=== PATIENT | female | born 1985 | race Caucasian/White ===

== ENCOUNTER 2020-01-24 11:03 | Emergency (ER) | payer OTHER, SELFPAY ==
--- NOTE | ~2020-01-24 | CT_ITS ---
EXAMINATION: CT abdomen pelvis w con DATE: 01/24/2020 12:13 INDICATION: Right lower quadrant pain TECHNIQUE: Computed tomography (CT) of the abdomen and pelvis was performed with 100 cc Omnipaque 350 intravenous contrast. The dose-length product was 554.02 mGy-cm. Automated exposure control and iter ative reconstruction technique were employed. COMPARISON: None. FINDINGS: There is dependent atelectasis of the lung bases. Heart size normal. No significant pleural or pericardial effusion. Status post cholecystectomy with expected prominence of the bile ducts. The liver, spleen, pancreas, adrenal glands and kidneys are unremarkable. Nonobstructive bowel gas pattern. There is a 3.5 cm righ t adnexal cyst, likely ovarian. No free fluid or free air. Small fat-containing umbilical hernia. The appendix is not positively visualized. There is no pericecal inflammatory change to suggest appendi citis. There are mild wedge-shaped deformities of T11 and T12, likely chronic. No acute osseous abnormality. IMPRESSION: 1. Right adnexal cyst measuring 3.5 cm maximum dimension, likely ovarian. Reviewed, dictated and finalized at location A.
[2020-01-24 11:10] VITALS: BP 133/74; PULSE 101; RESP 18; TEMP 37.1; O2SAT 97
[2020-01-24 11:43] LABS: Basophils Absolute Auto 0.1 K/mm3 (0.0-0.1); Basophils Percent Auto 0.4 % (0.2-1.2); Eosinophils Absolute Auto 0.2 K/mm3 (0-0.3); Eosinophils Percent Auto 1.3 % (0-4.4); Hematocrit 36.5 % (37.0-47.0); Hemoglobin 12.1 g/dL (12.0-15.0); Immature Granulocyte Absolute 0.04 K/mm3 (0.00-0.031); Immature Granulocyte Percent A 0.3 % (0-0.5); Lymphocytes Percent Auto 20.8 % (18.3-44.2); Mean Corpuscular HGB Conc 33.2 g/dl (32-36); Mean Corpuscular Hemoglobin 31.2 pg (26-34); Mean Corpuscular Volume 94.1 fl (80-100); Mean Platelet Volume 9.7 fl (7.4-10.4); Monocytes Absolute Auto 0.9 K/mm3 (0.1-0.6); Monocytes Percent Auto 6.9 % (2.6-8.5); Neutrophils Absolute Auto 9.1 K/mm3 (1.3-6.7); Neutrophils Percent Auto 70.3 % (45.5-73.1); Platelet Count Result 274 k/mm3 (150-375); Red Blood Count 3.88 M/mm3 (4.2-5.4); Red Cell Distribution Width 12.8 % (11.5-14.5)
[2020-01-24 11:56] LABS: Alanine Aminotransferase 39 U/L (4-35); Albumin Level 4.1 g/dL (3.5-5.1); Alkaline Phosphatase 86 U/L (38-126); Aspartate Amino Transferase 33 U/L (14-36); Bilirubin,Total 0.5 mg/dL (0.2-1.3); Blood Urea Nitrogen 7 mg/dL (7-17); Calcium 8.9 mg/dL (8.4-10.2); Carbon Dioxide 27 mmol/L (22-30); Chloride 103 mmol/L (98-107); Estimated CRCL calculation 107 ml/min; Estimated Glomerular Filt Rate > 60; Glucose 90 mg/dL (65-105); Lipase 36 U/L (23-300); Potassium 3.8 mmol/L (3.4-5.0); Sodium 134 mmol/L (137-145)
--- NOTE | 2020-01-24 11:56 | ED.ABDPAIN ---
HPI - Abdominal Pain General Chief Complaint: Abdominal Pain Stated Complaint: Sever abd pain Time Seen by Provider: 01/24/20 11:10 Source: patient Limitations: no limitations History of Present Illness HPI narrative: Patient is a 34-year-old female who presents to emergency department for evaluation of right lower quadrant abdominal pain that began today patient notes she has also had some vaginal discharge. Patient notes slight nausea but denies any fever chills vomiting diarrhea urinary symptoms. Patient notes possible risk for STD. Patient on arrival is in the room in no distress. Patient admits to having used heroin and methamphetamine prior evening. Related Data Home Medications Medication Instructions Recorded Confirmed divalproex [Depakote ER] 250 mg PO DAILY 01/24/20 Allergies Allergy/AdvReac Type Severity Reaction Status Date / Time meperidine [From Demerol] AdvReac Hives Verified 01/24/20 11:36 Review of Systems Review of Systems: All systems reviewed & are unremarkable except as noted in HPI and below PMFSH Past Medical History Medical History (Updated 01/24/20 @ 13:39 by Terry May PA-C) Obesity Seizure disorder Surgical History Surgical History H/O section Social History Social History (Updated 01/24/20 @ 11:59 by Terry May PA-C) Smoking status: Current every day smoker Alcohol intake: current Substance use type: heroin and amphetamines Living arrangements: with family Gender identity (if verbalized by the patient): Female Exam Narrative: Exam Narrative: GENERAL: Well-appearing, obese, and in no acute distress. HEAD: Normocephalic, atraumatic. EYES: PERRLA and EOMI. ENT: Nares clear, no rhinorrhea or epistaxis. Mucous membranes moist. CHEST: Clear to auscultation. No respiratory distress. No wheezes rales or rhonchi HEART: Regular rate and rhythm. No murmur heard. Normal peripheral pulses. ABDOMEN: Soft, right lower quadrant tenderness to palpation, nondistended, normal active bowel sounds. EXTREMITIES: Normal range of motion. No edema. SKIN: Warm, dry, no rash. NEURO: No focal deficits. Alert and oriented x3. Cranial nerves II through XII grossly intact PSYCH: Normal mood and affect. Course Course Emergency Course: Patient is a 34-year-old female who presented with right lower quadrant abdominal pain found to have ovarian cyst in the room afebrile nontoxic-appearing no other high risk changes in the blood work or imaging agreeing to follow-up with gynecology and primary care noted improvement with medications Vital Signs Vital signs: Vital Signs Temperature 98.8 F 01/24/20 11:10 Pulse Rate 101 H 01/24/20 11:10 Respiratory Rate 18 01/24/20 11:10 Blood Pressure 133/74 01/24/20 11:10 Pulse Oximetry 97 01/24/20 11:10 Temperature 98.8 F 01/24/20 11:10 Pulse Rate 101 H 01/24/20 11:10 Respiratory Rate 18 01/24/20 11:10 Blood Pressure 133/74 01/24/20 11:10 Pulse Oximetry 97 01/24/20 11:10 MDM - Abdominal Pain MDM Narrative Medical decision making narrative: Patient in the room resting comfortably noting improvement with medications aware of case findings treatment plan and diagnosis agreeing to follow-up as directed provided with reasons to return afebrile nontoxic-appearing without emesis was treated for STDs Lab Data Result diagrams: 01/24/20 11:26 01/24/20 11:26 Labs: Lab Results 01/24/20 01/24/20 01/24/20 Range/Units 11:26 11:26 11:26 WBC 13.0 H (4.5-10.0) K/mm3 RBC 3.88 L (4.2-5.4) M/mm3 Hgb 12.1 (12.0-15.0) g/dL Hct 36.5 L (37.0-47.0) % MCV 94.1 (80-100) fl MCH 31.2 (26-34) pg MCHC 33.2 (32-36) g/dl RDW 12.8 (11.5-14.5) % Plt Count 274 (150-375) k/mm3 MPV 9.7 (7.4-10.4) fl Immature Gran % (Auto) 0.3 (0-0.5) % Neut % (Auto) 70.3 (45.5-73.1) % Lymp
[2020-01-24] MEDS: SODIUM CHLORIDE 0.9% IV 1,000 ML 999 ML IV CONT (12:19)
[2020-01-24 12:51] LABS: Add Urine Microscopic? YES; Appearance Urine Cloudy (Clear); Bacteria Urine Trace /hpf; Bilirubin Urine Negative (Negative); Blood Urine Negative (Negative); Color Urine Yellow (Yellow); Glucose Urine UA Negative (Negative); Ketones Urine Negative (Negative); Leukocyte Esterase Ur 3+ LEU/UL (Negative); Mucus Urine Heavy /lpf; Nitrate Urine Negative (Negative); Protein Urine 1+ mg/dL (Negative); RBC Urine 0-2 /hpf (0-2); Specific Grav Ur 1.027 (1.001-1.035); Squamous Epithelial Cell Urine Many /hpf (Few)
[2020-01-24] MEDS: metroNIDAZOLE 250 MG TABLET 2000 MG PO (13:23)
[2020-01-24] MEDS: KETOROLAC 30 MG/ML VIAL (*BKC) IV PUSH (13:23)
[2020-01-24] MEDS: AZITHROMYCIN 250 MG TABLET 1000 MG PO (13:24)
[2020-01-24 13:29] VITALS: BP 111/71; PULSE 98; RESP 20; O2SAT 100
[2020-01-24 13:58] VITALS: BP 124/98; PULSE 93; RESP 18; O2SAT 100
== END 2020-01-24 14:00 | disposition home or self-care (01) ==
PROVIDERS: Emergency Medicine Emergency Medical Services; Emergency Provider Emergency Medicine; PCP Internal Medicine
DX: N83.201 Unspecified ovarian cyst, right side (principal); N34.2 Other urethritis; R10.31 Right lower quadrant pain; F17.210 Nicotine dependence, cigarettes, uncomplicated; G40.909 Epilepsy, unspecified, not intractable, without status epilepticus; E66.9 Obesity, unspecified; Z68.35 Body mass index [BMI] 35.0-35.9, adult
CPT/HCPCS: 36415; 74177; 80053; 81001; 81025; 83690; 85025; 87086; 87088; 87491; 87591; 96365; 96367; 96375; 99284; A9270; J0131; J0696; J1885; J7030; Q9967

== ENCOUNTER 2020-07-27 19:38 | Emergency (ER) | payer OTHER, SELFPAY ==
--- NOTE | ~2020-07-27 | XR_ITS ---
XR abdomen/kub 1V 07/27/2020 20:26 INDICATION: Foreign body ingestion.. Methamphetamines bag and 4 fentanyl buttons. TECHNIQUE: KUB COMPARISON: None FINDINGS: Bowel gas pattern is normal. There is a round foreign body in the pelvis. There are cholecy stectomy clips. There is no evidence of free air, mass, organomegaly, ascites or obstruction. No abn ormal calculi are seen. The bones appear intact. IMPRESSION: 1: Round radiolucent foreign body in the pelvis, possibly in the distal colon or rectum. Reviewed, dictated and finalized at location A. IMPRESSION: 1: Round radiolucent foreign body in the pelvis, possibly in the distal colon o r rectum.
--- NOTE | ~2020-07-27 | XR_ITS ---
EXAMINATION: XR chest 2V 07/27/2020 20:27 INDICATION: Overdose PROCEDURE: 2 view chest COMPARISON: 03/15/2007 FINDINGS: The lungs are clear. The cardiomediastinal silhouette is within normal limits. There are no pleural effusions. There is no pneumothorax suspected. IMPRESSION: 1: NO ACUTE CARDIOPULMONARY DISEASE. Reviewed, dictated and finalized at location A.
[2020-07-27 19:48] VITALS: BP 136/84; PULSE 128; RESP 22; TEMP 36.2; O2SAT 97
--- NOTE | 2020-07-27 20:09 | ECG_ITS ---
Measurements Intervals Stout Rate: 100 P: 30 MO: 143 QRS: 76 QRSD: 106 T: 36 QT: 342 QTc: 442 Interpretive Statements SINUS TACHYCARDIA BORDERLINE R WAVE PROGRESSION, ANTERIOR LEADS BASELINE ARTIFACT- I, II, III, AVR, AVL, AVF, V3, V6 BORDERLINE ECG Electronically Signed On 07-28-2020 8:10:37 CDT by Efren Pak D.O.
[2020-07-27 20:38] VITALS: PULSE 118
[2020-07-27] MEDS: PROMETHAZINE HCL 25 MG/ML AMPUL 12.5 MG IV PUSH (20:39)
[2020-07-27] MEDS: SODIUM CHLORIDE 0.9% IV 1,000 ML 999 ML IV CONT (20:39)
[2020-07-27 20:49] LABS: Basophils Absolute Auto 0.1 K/mm3 (0.0-0.1); Basophils Percent Auto 0.6 % (0.2-1.2); Eosinophils Absolute Auto 0.1 K/mm3 (0-0.3); Eosinophils Percent Auto 0.9 % (0-4.4); Hemoglobin 13.3 g/dL (12.0-15.0); Immature Granulocyte Absolute 0.03 K/mm3 (0.00-0.031); Immature Granulocyte Percent A 0.3 % (0-0.5); Lymphocytes Absolute Auto 2.35 K/mm3 (0.9-3.2); Lymphocytes Percent Auto 26.1 % (18.3-44.2); Mean Corpuscular HGB Conc 34.1 g/dl (32-36); Mean Corpuscular Hemoglobin 31.4 pg (26-34); Mean Corpuscular Volume 92.2 fl (80-100); Mean Platelet Volume 9.8 fl (7.4-10.4); Monocytes Absolute Auto 0.8 K/mm3 (0.1-0.6); Monocytes Percent Auto 8.3 % (2.6-8.5); Neutrophils Absolute Auto 5.7 K/mm3 (1.3-6.7); Neutrophils Percent Auto 63.8 % (45.5-73.1); Platelet Count Result 289 k/mm3 (150-375); Red Blood Count 4.23 M/mm3 (4.2-5.4); Red Cell Distribution Width 12.5 % (11.5-14.5)
[2020-07-27] MEDS: PEG (High)/E-LYTE SOLN 4,000 ML BTL 4000 ML PO (20:56)
[2020-07-27 21:00] VITALS: BP 142/92; PULSE 98; RESP 18; O2SAT 98
[2020-07-27 21:03] LABS: Alanine Aminotransferase 101 U/L (4-35); Albumin Level 4.5 g/dL (3.5-5.1); Alkaline Phosphatase 87 U/L (38-126); Anion Gap 13 mmol/L (8-16); Aspartate Amino Transferase 60 U/L (14-36); Bilirubin,Total 0.4 mg/dL (0.2-1.3); Blood Urea Nitrogen 9 mg/dL (7-17); Calcium 8.9 mg/dL (8.4-10.2); Carbon Dioxide 25 mmol/L (22-30); Chloride 103 mmol/L (98-107); Estimated CRCL calculation 112 ml/min; Estimated Glomerular Filt Rate > 60; Glucose 95 mg/dL (65-105); Lipase 30 U/L (23-300); Potassium 3.5 mmol/L (3.4-5.0); Sodium 141 mmol/L (137-145)
[2020-07-27 21:05] LABS: Acetaminophen < 10 ug/mL (10-30); Ethanol < 10 mg/dL (<10); Salicylate < 1.0 mg/dL (2-20)
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
[2020-07-27 21:32] LABS: Barbiturate Screen Urine Negative (Negative); Benzodiazepines Screen Urine Negative (Negative)
[2020-07-27] MEDS: NALOXONE HCL 0.4 MG/ML VIAL (21:34)
--- NOTE | 2020-07-27 21:34 | PC.NURSE ---
vrbo to give pt 0.4 narcan x1
[2020-07-27 21:40] LABS: Cannabinoid Screen Urine Positive (Negative); Cocaine Screen Urine Negative (Negative); Methadone Screen Urine Negative (Negative); Opiate Screen Urine Positive (Negative); Phencyclidine Screen Urine Negative (Negative)
[2020-07-27 21:46] VITALS: BP 149/96; PULSE 88; RESP 22; O2SAT 97
[2020-07-27 21:56] LABS: Amphetamine Screen Urine Positive (Negative)
[2020-07-27 22:42] VITALS: PULSE 110; RESP 19; O2SAT 96
== END 2020-07-28 00:52 ==
PROVIDERS: Emergency Provider Emergency Medicine; PCP Internal Medicine
DX: T40.601A Poisoning by unspecified narcotics, accidental (unintentional), initial encounter (principal); G40.909 Epilepsy, unspecified, not intractable, without status epilepticus; E66.9 Obesity, unspecified; Z68.31 Body mass index [BMI] 31.0-31.9, adult; F17.200 Nicotine dependence, unspecified, uncomplicated; R00.0 Tachycardia, unspecified; R94.31 Abnormal electrocardiogram [ECG] [EKG]
CPT/HCPCS: 36415; 71046; 74018; 80053; 80307; 83690; 85025; 93005; 96374; 96375; 99284; A9270; J2310; J2550; J7030

== ENCOUNTER 2021-04-04 02:36 | Inpatient (IN) | payer OTHER, SELFPAY ==
[2021-04-04] VITALS (83 sets, daily range): BP systolic 124–170; BP diastolic 71–141; PULSE 71–229; RESP 14–18; TEMP 36.1; O2SAT 96–100; BMI 40.0
--- NOTE | 2021-04-04 02:36 | LDADM ---
This patient, Lanny Hardy, was admitted to Labor/Delivery/Recovery 120 on 04/04/21 at 02:36. Plans for labor, pain management and were discussed with patient. Patient/family oriented to hospital policies and general routines including ID bracelet, bed and alarms, visiting hours, pain management, procedures, bathroom and other care routines, personal items, smoking policy, room service/diet and guest tray routines, security routines, and visiting hours. Patient/Family are encouraged to report perceived risks to care and to ask questions if they do not understand what they are told or what they should do. See OBIX for further documentation.
--- NOTE | 2021-04-04 03:09 | P.PNAN_ITS ---
Anes - Eval Pre Procedure Procedure: repeat Date/Time: 04/04/21 03:09 Surgeon: georgi Pre Op Diagnosis: Contractions Patient Data Age: 35 Gender: F Height: Weight: Allergies Allergy/AdvReac Type Severity Reaction Status Date / Time meperidine [From Demerol] AdvReac Hives Verified 07/27/20 19:52 Patient hx anesthesia problems: none Family hx anesthesia problems: none [facility] Past Medical History Medical History (Updated 07/29/20 @ 00:00 by Xochitl Luis) Obesity Seizure disorder Surgical History Surgical History H/O section Social History Social History (Updated 01/24/20 @ 11:59 by Terry May PA-C) Smoking status: Current every day smoker Alcohol intake: current Substance use type: heroin and amphetamines Gender identity (if verbalized by the patient): Female Exam Day of Procedure 04/04/21 03:09
--- NOTE | 2021-04-04 03:26 | WPDHPUPDATE1 ---
History and Physical Update Update Date/Time: 04/04/21 03:26 History and Physical has been reviewed, including an updated exam of the patient. There are NO changes in the patient's condition. Risks, benefits, and alternatives have been discussed and questions answered. Patient agrees to proceed with procedure.
--- NOTE | 2021-04-04 03:27 | PM.IMHP ---
H&P: HPI History of Present Illness Date/Time: 04/04/21 03:27 This patient is a 35-year-old multiparous female at 38 weeks gestation with a history of uterine rupture presents in labor. She is having painful uterine contractions. She denies any loss of fluid or vaginal bleeding. She reports good movement. She denies any nausea, vomiting, fever, chills. She denies any chest pain or shortness of breath. She denies any headache, blurry vision, epigastric pain. Chief Complaint: Labor Review of Systems Constitutional: Constitutional: Reports no additional constitutional complaints, Denies fatigue, Denies headache(s), Denies lethargy and Denies weakness Eyes: Eyes: Reports no additional eye complaints, Denies blurry vision and Denies photophobia ENT: Reports as per HPI, Denies headache(s) and Denies neck pain Cardiovascular: Cardiovascular: Denies chest pain, Denies diaphoresis, Denies leg edema, Denies palpitations and Denies dyspnea Respiratory: Respiratory: Denies hemoptysis, Denies dyspnea and Denies wheezing Gastrointestinal: Gastrointestinal: Denies abdominal pain, Denies melena, Denies bloating, Denies hematochezia, Denies nausea and Denies vomiting Genitourinary: Genitourinary: Reports no additional female genitourinary complaints Musculoskeletal: Musculoskeletal: Denies joint swelling, Denies neck pain, Denies numbness and Denies stiffness Neurologic: Denies Abnormal speech present, Denies confusion, Denies headache(s), Denies numbness and Denies weakness Psychiatric: Psychiatric: Denies anxiety, Denies confusion, Denies depression, Denies homicidal ideation and Denies suicidal ideation Endocrine: Endocrine: Denies fatigue and Denies palpitations Allergic/Immunologic: Allergic/Immunologic: Denies wheezing PMFSH Past Medical History Medical History (Updated 04/04/21 @ 03:30 by Stacy Prescott MD) Obesity Seizure disorder Surgical History Surgical History (Updated 04/04/21 @ 03:30 by Stacy Prescott MD) H/O section Social History Social History (Updated 01/24/20 @ 11:59 by Terry May PA-C) Smoking status: Current every day smoker Alcohol intake: current Substance use type: heroin and amphetamines Gender identity (if verbalized by the patient): Female Meds Home Medications and Allergies Allergies Allergy/AdvReac Type Severity Reaction Status Date / Time meperidine [From Demerol] AdvReac Hives Verified 07/27/20 19:52 Exam Const: General: healthy appearing, comfortable and no acute distress; No confusion Orientation/consciousness: No confusion Eyes: Direct Ophthalmoscopy: No photophobia Resp: Auscultation: clear to auscultation bilaterally, no rales, no rhonchi and no wheezes Cardio: Rate: regular rate Heart sounds: no click, no murmurs and no rubs GI: Inspection: non-distended GI Palp: No abdominal tenderness Auscultation: normal bowel sounds Neuro: General: No confusion Speech: No Abnormal speech present Extrem: General: normal to inspection, no pedal edema and no calf tenderness Assessment and Plan Assessment and plan (1) Term : Code(s): Z34.90 - Encounter for supervision of normal , unspecified, unspecified trimester Status: Acute (2) Previous section: Code(s): Z98.891 - History of uterine scar from previous surgery Status: Acute (3) Uterine rupture: Code(s): S37.69XA - Other injury of uterus, initial encounter Status: Acute (4) Seizure disorder: Code(s): G40.909 - Epilepsy, unspecified, not intractable, without status epilepticus Status: Acute Assessment and Plan: this patient is a 35-year-old multiparous female at term presents with painful uterine contractions. She has a history of uterine rupture. We will proceed with delivery immediately. She has reassuring heart tones.
[2021-04-04 03:28] LABS: Basophils Percent Auto 0.3 % (0.2-1.2); Eosinophils Absolute Auto 0.2 K/mm3 (0-0.3); Eosinophils Percent Auto 1.5 % (0-4.4); Hematocrit 40.3 % (37.0-47.0); Hemoglobin 13.5 g/dL (12.0-15.0); Immature Granulocyte Absolute 0.08 K/mm3 (0.00-0.031); Immature Granulocyte Percent A 0.5 % (0-0.5); Lymphocytes Absolute Auto 2.35 K/mm3 (0.9-3.2); Lymphocytes Percent Auto 15.2 % (18.3-44.2); Mean Corpuscular HGB Conc 33.5 g/dl (32-36); Mean Corpuscular Hemoglobin 33.3 pg (26-34); Mean Corpuscular Volume 99.3 fl (80-100); Mean Platelet Volume 12.1 fl (7.4-10.4); Monocytes Percent Auto 6.1 % (2.6-8.5); Neutrophils Absolute Auto 11.9 K/mm3 (1.3-6.7); Neutrophils Percent Auto 76.4 % (45.5-73.1); Platelet Count Result 172 k/mm3 (150-375); Red Blood Count 4.06 M/mm3 (4.2-5.4); Red Cell Distribution Width 14.2 % (11.5-14.5); White Blood Count 15.5 K/mm3 (4.5-10.0)
[2021-04-04 04:11] LABS: Alanine Aminotransferase 29 U/L (4-35); Albumin Level 3.2 g/dL (3.5-5.1); Alkaline Phosphatase 244 U/L (38-126); Anion Gap 5 mmol/L (8-16); Aspartate Amino Transferase 42 U/L (14-36); Bilirubin,Total 0.2 mg/dL (0.2-1.3); Blood Urea Nitrogen 10 mg/dL (7-17); Carbon Dioxide 21 mmol/L (22-30); Chloride 108 mmol/L (98-107); Estimated Glomerular Filt Rate > 60; Glucose 123 mg/dL (65-105); Potassium 3.5 mmol/L (3.4-5.0); Sodium 134 mmol/L (137-145)
[2021-04-04 04:12] LABS: Barbiturate Screen Urine Negative (Negative); Benzodiazepines Screen Urine Negative (Negative)
[2021-04-04 04:13] LABS: Cannabinoid Screen Urine Positive (Negative); Cocaine Screen Urine Negative (Negative); Methadone Screen Urine Negative (Negative); Opiate Screen Urine Negative (Negative); Phencyclidine Screen Urine Negative (Negative)
--- NOTE | 2021-04-04 04:29 | W.PM.PROC2 ---
Procedure Note - Detailed Date of Procedure 04/04/21 Pre-op Diagnosis Contractions, labor, previous a uterine rupture, previous delivery Post-op Diagnosis same Procedure Performed Low-transverse section Surgeon Stacy Prescott MD Anesthesia spinal Indications labor, previous uterine rupture Findings Normal gestational maternal anatomy, average size , normal Apgars. thick meconium Description of Procedure The patient was taken the operating room. She was prepped and draped in dorsal supine position with a leftward tilt. This was done after spinal anesthetic was applied. A low-transverse skin incision was made and carried down till of the fascia with the knife. The fascial incision was made with the knife. The fascial incision was extended laterally with Espinosa scissors. The fascia was tented upward superiorly and inferiorly the rectus muscles were dissected off bluntly. The rectus muscles were the midline. The preperitoneal fat and peritoneum were dissected open bluntly at the superior aspect of the rectus muscles. The peritoneal incision was extended superior and inferior with good position of bladder. The uterine incision was made with a scalpel down to the level of the amniotic cavity. The amniotic cavity was entered bluntly. The infant was delivered. The cord was clamped and cut and the infant was handed off to waiting pediatric staff. Cord bloods were obtained. The placenta was removed manually. The uterus was exteriorized. The uterus was cleared of all clots, debris and membranes. The uterus was closed in 0 Vicryl running lock fashion. An imbricating over a was placed along the incision line as well. The uterus was returned to the abdomen. The gutters were cleared of all clots and debris. The fascia was closed with 0 Vicryl running fashion. The subcutaneous tissue was irrigated pinpoint bleeders were cauterized. The skin was closed with subcuticular absorbable esthela. The skin incision line was covered with glue. The patient tolerated the procedure well. She has taken recovery room in stable condition. Sponge lap and needle counts were correct x2. Pathology yes Complications No immediate complications Condition stable Disposition PACU
--- NOTE | 2021-04-04 04:32 | WPDANESEFPP ---
Anes - Eval Final PreProcedure Day of Procedure 04/04/21 04:32 Patient weight: obese Heart: regular rate and rhythm Lungs: decreased breath sounds Neurological: alert and oriented ASA classification: III Emergent: yes Anesthetic plan: proceed Anesthesia type and monitoring: regional spinal and standard monitoring Other findings: exam per GS Informed Consent: The patient's anesthetic plan and its attendant risks and benefits were discussed with the patient/family/POA. Questions were solicited and answers provided to the satisfaction of the patient/family/POA.
--- NOTE | 2021-04-04 04:44 | PC.NURSE ---
Dr. Prescott updated on pt blood pressure in OR. Pt continuing to have elevated blood pressures. Order received for 200mg BID Labetalol PO. No other new orders at this time.
[2021-04-04 04:48] LABS: Rubella IgG Antibody 57.2 IU/ML
[2021-04-04 04:49] LABS: Hepatitis B Surface Antigen Negative (Negative)
[2021-04-04 04:59] LABS: HIV 1/2 Ab P24 Ag Result Negative (Negative)
[2021-04-04] MEDS: OXYTOCIN 30 UNITS/NS 500 ML 30 UNITS/500 ML BAG 125 UNITS IV CONT (05:05)
[2021-04-04] MEDS: LABETALOL HCL 100 MG TABLET 200 MG PO (05:53)
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
[2021-04-04] MEDS: DEXTROSE 5%/0.45% SOD CHL 1,000 ML 125 ML IV CONT (10:04)
[2021-04-04] MEDS: HYDROcodone/acetaminophen (*CRX) 10-325 MG TABLET 1 TAB PO (10:04)
[2021-04-04] MEDS: DOCUSATE SODIUM 100 MG CAPSULE PO (10:44)
[2021-04-04] MEDS: MULTIVIT/MIN/PREN/FOL AC/IRON TABLET 1 TAB PO (10:45)
--- NOTE | 2021-04-04 10:46 | PC.NURSE ---
1010--Phopne call to Dr. Prescott re: pt. being very anxious and stating that she wants to leave and go with the baby . updated re: v.s., orders received for valium 5mg IV.
--- NOTE | 2021-04-04 10:47 | PC.NURSE ---
1045--Pt. refusing valium at this time.
--- NOTE | 2021-04-04 11:04 | PC.NURSE ---
1100--Pt. states she is going to sign out AMA and leave. Pt. educated re: BP, postop risks and strongly encouraged to stay and receive medical care. Pt. insists she has to go . Phone call to Dr. Prescott updating him about pt. States he will be here soon.
--- NOTE | 2021-04-04 11:08 | PC.NURSE ---
1108--Dr. Prescott at to see pt.
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
--- NOTE | 2021-04-04 11:50 | PC.NURSE ---
1145--Pt. left unit AMA accompanied by a family member.
--- NOTE | 2021-04-04 11:55 | PC.NURSE ---
1123--IV and FC DC'd. Attempt to educate pt. re: post-op care, pt. states I've done this 3 times before, I know what I'm supposed to do. Pt. recieves personal phone call at this time.
[2021-04-04 12:11] LABS: Rapid Plasma Reagin Non-Reactive (NonReactive)
[2021-04-07 21:54] LABS: Hepatitis C RNA, Quant PCR 2320000 IU/mL
--- NOTE | 2021-04-25 21:05 | PM.OBDSVD ---
DS: Admitting Diagnosis Admitting Diagnosis labor, uterine rupture DS: Discharge Diagnosis Discharge Diagnosis (1) Uterine rupture: Code(s): S37.69XA - Other injury of uterus, initial encounter Status: Acute (2) Previous section: Code(s): Z98.891 - History of uterine scar from previous surgery Status: Acute (3) Term : Code(s): Z34.90 - Encounter for supervision of normal , unspecified, unspecified trimester Status: Acute (4) Seizure disorder: Code(s): G40.909 - Epilepsy, unspecified, not intractable, without status epilepticus Status: Acute OB - DS: Summary OB Procedures : NST and Ultrasound OB Procedures Intrapartum: OB Procedures: : None Peripartum Data Procedures: Procedures Operation Date: 04/04/21 03:25 Actual Procedure Side Surgeon p Section Stacy Prescott MD Time Spent with Patient Time attestation: Total time spent providing and/or coordinating discharge services: Discharge Plan Discharge Consulting providers: Veronn Gustafson Patient Disposition: Left Against Medical Advice Discharge Medications: No Action doxycycline hyclate 100 mg tablet 100 mg PO BID RF: 0 ciprofloxacin HCl [Cipro] 500 mg tablet 500 mg PO Q12H Qty: 20 RF: 0 Date of admission: 04/04/21 02:36 Primary Care Provider: Han Chun Admitting Provider: Stacy Prescott Attending physician on admission: Stacy Prescott
== END 2021-04-04 11:45 | disposition left against medical advice (07) | DRG 540 ==
PROVIDERS: Admitting Provider Obstetrics & Gynecology; PCP Internal Medicine; Visit Provider Obstetrics & Gynecology
PROC: 10D00Z1 Extraction of Products of Conception, Low, Open Approach (ICD-10-PCS; CPT 59514; principal; 2021-04-04 03:25)
DX: O99.892 Other specified diseases and conditions complicating childbirth (principal); Z37.0 Single live birth; Z3A.38 38 weeks gestation of pregnancy; Z87.59 Personal history of other complications of pregnancy, childbirth and the puerperium; O34.211 Maternal care for low transverse scar from previous cesarean delivery; O77.0 Labor and delivery complicated by meconium in amniotic fluid; O69.81X0 Labor and delivery complicated by cord around neck, without compression, not applicable or unspecified; O99.214 Obesity complicating childbirth; E66.9 Obesity, unspecified; O99.354 Diseases of the nervous system complicating childbirth; G40.909 Epilepsy, unspecified, not intractable, without status epilepticus; O99.324 Drug use complicating childbirth; F12.90 Cannabis use, unspecified, uncomplicated; F15.90 Other stimulant use, unspecified, uncomplicated; O99.334 Smoking (tobacco) complicating childbirth; F17.210 Nicotine dependence, cigarettes, uncomplicated
CPT/HCPCS: 36415; 80053; 80307; 84112; 85025; 86592; 86703; 86762; 86850; 86900; 86901; 87340; 87522; 88307; A9270; G0432; J0131; J1885; J2274; J2370; J2405; J2590

== ENCOUNTER 2021-04-23 07:47 | Emergency (ER) | payer OTHER, SELFPAY ==
[2021-04-23 07:44] VITALS: BP 130/100; PULSE 79; RESP 16; TEMP 36.3; O2SAT 100
--- NOTE | 2021-04-23 08:05 | PC.NURSE ---
After speaking with physician. Pt states she would like to leave or be transferred to another hospital. ED charge coordinator called to room to speak with pt. Pt agreeable to plan of care at this time.
[2021-04-23 08:30] VITALS: BP 135/90; PULSE 79; RESP 16; O2SAT 99
[2021-04-23 09:00] LABS: Add Urine Microscopic? YES; Appearance Urine Cloudy (Clear); Bilirubin Urine Negative (Negative); Blood Urine 3+ (Negative); Color Urine Yellow (Yellow); Glucose Urine UA Negative (Negative); Ketones Urine Negative (Negative); Leukocyte Esterase Ur 2+ LEU/UL (Negative); Mucus Urine Rare /lpf; Nitrate Urine Negative (Negative); Protein Urine 2+ mg/dL (Negative); RBC Urine >75 /hpf (0-2); Specific Grav Ur 1.021 (1.001-1.035); Squamous Epithelial Cell Urine Many /hpf (Few); Urobilinogen Urine Negative mg/dL (<2.0); WBC Urine >75 /hpf
--- NOTE | 2021-04-23 09:08 | ED.GENADULT ---
HPI - General Adult General Chief complaint: Wound/Laceration Stated complaint: POST OP COMPLICATIONS Time Seen by Provider: 04/23/21 08:32 Source: patient, EMS and RN notes reviewed Mode of arrival: EMS History of Present Illness HPI narrative: Patient is 35 years old white female brought to the emergency room by ambulance because of open section. Patient is status post section April 04, 2021, by Dr. Prescott at [facility], signed AMA 8 hours after the section, did not follow with his office since left to the hospital. Been to [facility] in the last 2 weeks for the same problem, started on doxycycline by [facility] yesterday. Currently patient denying any fever, chills, nausea, vomiting, diarrhea, abdominal pain, back pain, headache. Patient been using drugs lately. Related Data Home Medications Medication Instructions Recorded Confirmed doxycycline hyclate 100 mg PO BID 04/23/21 04/23/21 Allergies Allergy/AdvReac Type Severity Reaction Status Date / Time meperidine [From Demerol] AdvReac Hives Verified 04/23/21 08:40 Review of Systems Review of Systems: ROS unobtainable: Yes unobtainable due to medical condition PMFSH Past Medical History Medical History Obesity Seizure disorder Surgical History Surgical History H/O section Social History Social History Years smoked: 12 Smoking status: Current every day smoker Alcohol intake: current Substance use: current Substance use type: heroin and amphetamines Gender identity (if verbalized by the patient): Female Spiritual care concerns: No Exam Narrative: Exam Narrative: General appearance: Well-developed, well-nourished, no significant other at the bedside, sleepy most of the time, speaks slowly with low volume, sometimes trouble to understand her Skin: Normal color, Head: Normocephalic, nontraumatic Eyes: Clear conjunctiva ENT: Oropharynx normal, ears normal, nose normal Neck: Supple, nontender Chest and respiratory: Airway patent, no respiratory distress, no accessory muscle use Heart: Regular rate/rhythm Abdomen: Soft, nontender, no organomegaly, quiet bowel sounds, section scar showing for centimeter opening in the center, with some yellow discharge sticking inside of it. No drainage, erythematous edges of the wound, tender to touch Vascular: Normal peripheral pulses, normal capillary refill. Musculoskeletal: Normal range of motion, nontender back Neurologic: Alert and oriented ?3, MOLD COOLER is normal as tested, no gross motor deficit Course Course Emergency Course: Stable Consultations Consultation #1: Dr. Perez Wet-to-dry dressing, see Dr. Prescott tomorrow Date: 04/23/21 Time: 10:33 Vital Signs Vital signs: Vital Signs Temperature 36.3 C L 04/23/21 07:44 Pulse Rate 79 04/23/21 07:44 Respiratory Rate 16 04/23/21 07:44 Blood Pressure 130/100 H 04/23/21 07:44 Pulse Oximetry 100 04/23/21 07:44 Temperature 36.3 C L 04/23/21 07:44 Pulse Rate 75 04/23/21 09:20 Respiratory Rate 16 04/23/21 09:20 Blood Pressure 151/93 H 04/23/21 09:20 Pulse Oximetry 100 04/23/21 09:20 Medical Decision Making [facility] Narrative Medical decision making narrative: Postop wound infection is my concern. Labs, [employer] consult ordered Work-up showed that patient had urinary tract infection which could be asymptomatic. My plan to stop doxycycline and start Cipro which will be a good cover also for postop infection, patient received 1 dose of vancomycin IV prior t
[2021-04-23 09:20] VITALS: BP 151/93; PULSE 75; RESP 16; O2SAT 100
[2021-04-23 09:23] LABS: Barbiturate Screen Urine Negative (Negative); Benzodiazepines Screen Urine Negative (Negative)
[2021-04-23 09:26] LABS: Cannabinoid Screen Urine Positive (Negative); Cocaine Screen Urine Negative (Negative); Methadone Screen Urine Negative (Negative); Opiate Screen Urine Negative (Negative); Phencyclidine Screen Urine Negative (Negative)
[2021-04-23 09:48] LABS: Basophils Absolute Auto 0.1 K/mm3 (0.0-0.1); Basophils Percent Auto 1.1 % (0.2-1.2); Eosinophils Absolute Auto 1.1 K/mm3 (0-0.3); Eosinophils Percent Auto 12.1 % (0-4.4); Hematocrit 38.7 % (37.0-47.0); Hemoglobin 12.6 g/dL (12.0-15.0); Immature Granulocyte Absolute 0.03 K/mm3 (0.00-0.031); Immature Granulocyte Percent A 0.3 % (0-0.5); Lymphocytes Absolute Auto 2.74 K/mm3 (0.9-3.2); Lymphocytes Percent Auto 30.4 % (18.3-44.2); Mean Corpuscular HGB Conc 32.6 g/dl (32-36); Mean Corpuscular Hemoglobin 32.5 pg (26-34); Mean Corpuscular Volume 99.7 fl (80-100); Mean Platelet Volume 8.9 fl (7.4-10.4); Monocytes Absolute Auto 0.6 K/mm3 (0.1-0.6); Monocytes Percent Auto 6.8 % (2.6-8.5); Neutrophils Absolute Auto 4.4 K/mm3 (1.3-6.7); Neutrophils Percent Auto 49.3 % (45.5-73.1); Platelet Count Result 539 k/mm3 (150-375); Red Blood Count 3.88 M/mm3 (4.2-5.4)
[2021-04-23 10:00] LABS: Alanine Aminotransferase 74 U/L (4-35); Albumin Level 4.5 g/dL (3.5-5.1); Alkaline Phosphatase 143 U/L (38-126); Anion Gap 7 mmol/L (8-16); Aspartate Amino Transferase 75 U/L (14-36); Bilirubin,Total 0.4 mg/dL (0.2-1.3); Blood Urea Nitrogen 13 mg/dL (7-17); Calcium 10.4 mg/dL (8.4-10.2); Carbon Dioxide 33 mmol/L (22-30); Chloride 97 mmol/L (98-107); Estimated CRCL calculation 96 ml/min; Estimated Glomerular Filt Rate > 60; Glucose 86 mg/dL (65-110); Potassium 4.1 mmol/L (3.4-5.0); Sodium 137 mmol/L (137-145)
[2021-04-23 10:20] VITALS: BP 120/80; PULSE 73; RESP 18; O2SAT 99
[2021-04-23 10:54] LABS: Amphetamine Screen Urine Positive (Negative)
[2021-04-23] MEDS: CIPROFLOXACIN 500 MG TAB PO (10:54)
== END 2021-04-23 10:54 | disposition home or self-care (01) ==
PROVIDERS: Emergency Provider Emergency Medicine
DX: O86.01 Infection of obstetric surgical wound, superficial incisional site (principal); O86.20 Urinary tract infection following delivery, unspecified
CPT/HCPCS: 36415; 80053; 80307; 81001; 85025; 87086; 99283; A9270